=== PATIENT | male | born 1945 | race Caucasian/White ===

== ENCOUNTER 2017-09-25 10:33 | Outpatient (CLI) | payer MEDICARE, MEDICAID | END 2017-09-25 10:34 | disposition home or self-care (01) | LOC: BICULT 10:33 | PROVIDERS: ATTEND Internal Medicine Gastroenterology | DX: K74.60 Unspecified cirrhosis of liver (principal); K83.8 Other specified diseases of biliary tract | CPT/HCPCS: 76705 ==

== ENCOUNTER 2018-02-16 14:00 | Inpatient (IN) | payer MEDICARE, MEDICAID ==
[2018-02-16 14:20] VITALS: BMI 36.4
--- NOTE | 2018-02-26 09:15 | HP ---
HISTORY OF PRESENT ILLNESS: This is a very pleasant 72-year-old male who reports to our office for e valuation of lumbar back pain with left leg numbness. He was seen in our office approximately 4 year s ago for similar symptoms. At that time we referred him to Dr. Tai for injections and pain ma nagement. The patient has tried epidural steroid injections and had a nerve stimulator placed which was removed 3 months ago because it was not helping. The patient states that he cannot stand for any length of time, the most comfortable position for him is lying down. Most of his pain is along the belt line and he has numbness in the left lateral lower leg and lateral foot. The patient will find himself leaning on a shopping cart if he has any grocery shopping to do. Patient denies any falls or weakness. The patient denies any physical therapy, he states that pain meds takes the edge off, but do not make the pain go away. REVIEW OF SYSTEMS: A 10-point review of systems has been completed and is otherwise negative unless stated in the HPI above. PAST MEDICAL HISTORY: Diabetes, hypertension, history of Staph infection, high cholesterol, hepatiti s C, rheumatoid arthritis. PAST SURGICAL HISTORY: Tonsillectomy, knee surgery, ankle surgery in 2016, abdominal aneurysm stent placement in 04/2016. FAMILY HISTORY: Father is at 71 from kidney failure. Mother is at 72 from heart p roblems and diabetes. One of his siblings is , diagnosed with heart disease and a stroke. F amily history of brain aneurysm, heart attacks and kidney problems. SOCIAL HISTORY: The patient is a smoker, smokes approximately half pack a day. He does not drink al cohol or use any other illicit drugs. The patient is retired and . Drinks occasional caffei ne. MEDICATIONS: Atorvastatin, glipizide, nifedipine, aspirin 81 mg, atenolol, Zetia, Benicar and vitami n D3. Hysingla extended release, [place]. PHYSICAL EXAMINATION: CONSTITUTIONAL: Well-developed, well-nourished, alert. NEUROLOGICAL: Mental status, oriented to time, place and person. Normal attention span and concentr ation. Speech is spontaneous and fluent. Comprehension is intact. Content appropriate. Normal fun d of knowledge. CRANIAL NERVES: Pupils are equal, round, reactive to light. Extraocular movements intact. Hearing is intact. Motor muscle strength normal in lower extremities. Muscle tone and bulk normal in lower extremities, 5/5 bilateral strength in IP, KD, KS, PS, EHL. Negative single leg raise. Bilateral ro tation of hips normal. Deep tendon reflexes 2+ patellar bilaterally, 1+ ankle bilaterally. Sensory; light touch, decreased lower left lateral calf and foot. Gait and station; sit to stand, slow. Wid e gait both legs. RESPIRATORY: Normal work of breathing on room air. SKIN: No rashes or lesions on his skin. PSYCHIATRIC: Normal mood and affect. IMAGING: Lumbar MRI vertebrae and alignment L4-L5 foraminal compression; no central compression. Lumbar flexion, extension x-rays L4-L5 anterolisthesis. ASSESSMENT AND PLAN: Spondylolisthesis, lumbar region, L4-L5. Dr. Trotter offered laminectomy and T-lift for L4-5. Risks and benefits have been discussed and the patient is willing to proceed with surgery.
[2018-02-27] MEDS ORDERED: CEFAZOLIN/Water 2 GM/20 ML SYRINGE ONE (06:08)
[2018-02-27] MEDS ORDERED: Thrombin 5000 UNITS/5 ML VIAL ONE (06:17)
[2018-02-27] MEDS ORDERED: Sodium Chloride 0.9% 30 ML ONE (06:17)
[2018-02-27] MEDS ORDERED: Bupivacaine HCl 0.5%/Epinephrine 1:200,000/PF 30 ml Vial ONE (06:17)
[2018-02-27] MEDS ORDERED: Fentanyl 250 MCG/5 ML VIAL ONE (07:04)
[2018-02-27] MEDS ORDERED: Fentanyl 100 MCG/2 ML VIAL ONE ×3 (11:02→14:18)
[2018-02-27] MEDS ORDERED: Rocuronium Bromide 50 MG/5 ML VIAL ONE (11:04)
--- NOTE | 2018-02-27 13:08 | OP ---
DATE OF PROCEDURE: 02/27/2018 SURGEON: Sabrina Trotter M.D. MACHINIST TOOL AND DIE: Suzanne Acevedo PA-C. PREOPERATIVE INDICATION: Treat pain, prevent neurological deterioration. PREOPERATIVE DIAGNOSES: Spondylolisthesis at L4-L5 causing lateral recess stenosis and foraminal dis ease and L4 and L5 radiculopathies. POSTOPERATIVE DIAGNOSES: Spondylolisthesis at L4-L5 causing lateral recess stenosis and foraminal di sease and L4 and L5 radiculopathies. OPERATIVE PROCEDURE: Decompressive laminectomy, medial facetectomy, foraminotomy, and wide foraminot ian at L4-5 followed by transforaminal lumbar interbody arthrodesis, placement of intervertebral biom echanical device at L4-L5, pedicle screw and benny instrumentation at L4-L5 and posterolateral arthrode sis at L4-L5, local morselized autograft, morselized allograft. PREOPERATIVE MEDICATION: Ancef 2 grams IV. DRAIN NUMBER: One. DRAIN TYPE: 10 Portuguese Marco. OPERATIVE DICTATION: The patient was brought to the operating room. General endotracheal anesthesia was induced. The patient was positioned prone on the operating table and his chest and hips were queen pported by the appropriate attachments for the Mustapha frame. A lateral fluoro radiograph was used t o plan an incision that would give us access from L3-L5 segments of the lumbar spine. The skin was s terilely prepped and draped. We opened with a 10 blade knife and controlled bleeding with bipolar an d monopolar cautery. Using monopolar cautery to dissect through subcutaneous tissues to the thoracod orsal fascia. We incised the fascia in the midline and we reflected the paraspinal muscles off the s pinous process and lamina of L3, L4, and L5. Self-retaining retractors were placed. A lateral fluor o radiograph confirmed the levels upon which we were operating. We then carried our dissection over the facet joints at L3-4 and L4-5 to identify the transverse processes of L4 and L5 bilaterally. We irrigated with bacitracin irrigation. We placed self-retaining retractors and we turned our attentio n to decompression. Using an Adson rongeur we removed the spinous process of L4 and the superior portion of L5. Kerrison rongeurs were used to fashion a laminectomy. We widened our laminectomy defect until we were flush with the pedicles at L4 and L5. We had to perform wide foraminotomies over the L4 nerve roots and en sured there were decompressed in their foramen. We performed foraminotomies over the L5 nerve root a s well and made sure the lateral recess was well decompressed. After decompression of the neural debi ments was secured, we turned our attention to arthrodesis. We performed a complete facetectomy at L4-5 on the left side and through the window of the foramen we had just created we accessed the intervertebral space. We incised the disk and removed disk content s using curettes and rongeurs. A series of progressively larger bone rasps were brought in the field . These were used to prepare the endplates for grafting. There was 17 mm of space between the endpl ates. We prepared the endplates for grafting using curets and then irrigated with bacitracin irrigat ion. A 17 mm PEEK intervertebral graft was brought into the field. This was loaded with our deminer alized bone matrix and morselized autograft. That autograft was prepared on the back table from our laminectomy bone, which was cleaned of all soft tissue attachments and morselized into the deminerali zed bone matrix to form our fusion substrate. With the PEEK graft loaded with bone fusion substrate. It was then advanced into the interspace under radiographic guidance to the appropriate depth. We turned our attention to pedicle screw instrumentation. Using bony anatomic landmarks, palpation of t he medial portion of the pedicles, and a lateral fluoro radiograph as a guide, we chose entry points for pedicle screws at L4 and L5 bilaterally. We drilled out the entry points and then used the bone awl to create trajectories through the pedicles and then we tapped our trajectories. We found them c ompletely encased in bone. We placed a 6.5 x 55 mm pedicle screws at L4 and L5 bilaterally. A 360 d egree image set was generated with our isocentric C-arm. This confirmed adequate position of our ped icle screw instrumentation. We then irrigated copiously with bacitracin irrigation. With a high-spe ed drill, we decorticated the transverse processes of L4 and L5 bilaterally and over the decorticated bone we left demineralized bone matrix and morselized autograft as are posterolateral fusion substra te. We brought rods into the screw heads and tightened caps over the rods. Before final tightening, we compressed across the interspace to keep our interbody graft in place. Using a lqlaiq-[id number]-pc rque mechanism, we ensured adequate tightness of the caps. We irrigated the center of the wound once again with bacitracin irrigation. We made sure that the neural foramina were still patent with fora minotomy Kerrisons. We infused local anesthetic in the paraspinal muscles. We treated the wound wit h vancomycin powder. We tunneled a drain inferiorly through a separate stab incision and closed the wound in anatomic layers over the drain. This was a clean case and no contamination.
[2018-02-27] MEDS ORDERED: HYDROcodone/Acetaminophen 7.5/325 mg Tablet PO PRN (13:22)
[2018-02-27] MEDS ORDERED: Morphine 4 MG/ML Carpuject SLOW IVP PRN (13:22)
[2018-02-27] MEDS ORDERED: Acetaminophen/Codeine 30-300mg Tablet PO PRN (13:22)
[2018-02-27] MEDS ORDERED: Acetaminophen 325 MG TAB PO PRN (13:22)
[2018-02-27] MEDS ORDERED: Promethazine HCl 25 MG/ML VIAL IM PRN (13:22)
[2018-02-27] MEDS ORDERED: diphenhydrAMINE 25 MG CAP PO PRN (13:22)
[2018-02-27] MEDS ORDERED: Ondansetron HCl/PF 4 MG/2 ML Vial IVP PRN (13:22)
[2018-02-27] MEDS ORDERED: Zolpidem Tartrate 5 MG TAB PO PRN (13:22)
[2018-02-27] MEDS ORDERED: diphenhydrAMINE 50 MG/ML VIAL IVP PRN (13:22)
[2018-02-27] MEDS ORDERED: Bisacodyl 10 MG SUPP PR PRN (13:22)
[2018-02-27] MEDS ORDERED: Mag-Al 1200 mg/1200 mg/30 ML UDCUP PO PRN (13:22)
[2018-02-27] MEDS ORDERED: Acetaminophen 650 MG Suppository PR PRN (13:22)
[2018-02-27] MEDS ORDERED: Milk Of Magnesia 30 ML UDCUP PO PRN (13:22)
[2018-02-27] MEDS ORDERED: Promethazine 25 MG TAB PO PRN (13:22)
[2018-02-27] MEDS ORDERED: HYDROcodone/Acetaminophen 10/325 mg Tablet PO PRN (13:26)
[2018-02-27] MEDS ORDERED: Nitroglycerin 0.4 MG TAB (25 Tab Bottle) SL PRN (13:26)
[2018-02-27] MEDS ORDERED: Ketorolac Tromethamine 30 MG/ML VIAL ONE (13:51)
[2018-02-27] MEDS ORDERED: ePHEDrine/0.9% NaCl/PF SYRINGE 50 mg/10 ml ONE (13:51)
[2018-02-27] MEDS ORDERED: Dexamethasone 20 MG/5 ML VIAL ONE (13:51)
[2018-02-27] MEDS ORDERED: PROPOFOL 200 MG/20 ML VIAL ONE (13:51)
[2018-02-27] MEDS ORDERED: Glycopyrrolate 0.2 MG/ML 5 ML SYRINGE ONE (13:51)
[2018-02-27] MEDS ORDERED: Lidocaine 1% PF 5 ML VIAL ONE (13:51)
[2018-02-27] MEDS ORDERED: CEFAZOLIN/Water 2 GM/20 ML SYRINGE SLOW IVP SCH (16:00)
[2018-02-27] MEDS: Morphine 4 MG/ML VIAL IV PRN (16:01)
[2018-02-27] MEDS: tiZANidine HCl 4 MG TAB PO PRN (16:39)
[2018-02-27] MEDS: Sodium Chloride 0.9% 1,000 ML IV SCH (18:35)
[2018-02-27] MEDS ORDERED: Non-Formulary Item 1 EACH (Atorvastatin Calcium [Lipitor] 80 MG) PO SCH (21:00)
[2018-02-27] MEDS ORDERED: Sodium Chloride 0.9% 1,000 ML IV SCH (21:15)
[2018-02-27 21:26] LABS: #Lymphocytes 1.1 thou/uL (1.20-3.40); #Monocytes 1.1 thou/uL (0.11-0.59); #Neutrophils 10.7 thou/uL (1.40-6.50); %Basophils 0.2 % (0.0-1.0); %Eosinophils 0.2 % (0.0-10.0); %Lymphocytes 8.3 % (21.0-51.0); %Monocytes 8.2 % (0.0-10.0); %Neutrophils 83.2 % (42.0-75.0); Hemoglobin 8.8 g/dL (14.0-18.0); Mean Corpuscular HGB CONC 32.8 g/dL (32.0-36.0); Mean Corpuscular Hemoglobin 30.9 pg (27.0-31.0); Mean Corpuscular Volume 94.1 fL (78.0-98.0); Mean Platelet Volume 6.3 fL (7.4-10.4); Platelet Count 279 thou/uL (130-400); RBC Distribution Width 12.8 % (11.5-14.5); Red Blood Cell (RBC) Count 2.83 mill/uL (4.70-6.10); White Blood Cell (WBC) Count 12.8 thou/uL (4.8-10.8)
[2018-02-27] MEDS: CEFAZOLIN/Water 2 GM/20 ML SYRINGE SLOW IVP SCH (22:24)
[2018-02-27] MEDS: Atenolol 25 MG TAB PO SCH (22:25)
[2018-02-27] MEDS: Atorvastatin Calcium 40 MG TAB PO SCH (22:25)
[2018-02-28] MEDS: Tamsulosin HCl 0.4 MG CAP PO SCH (05:25)
[2018-02-28] MEDS: CEFAZOLIN/Water 2 GM/20 ML SYRINGE SLOW IVP SCH ×4 (05:27→21:05)
[2018-02-28] MEDS: Sodium Chloride 0.9% 1,000 ML IV SCH ×2 (05:45→16:31)
[2018-02-28] MEDS: HYDROcodone/Acetaminophen 7.5/325 mg Tablet PO PRN ×3 (06:23→16:40)
[2018-02-28] MEDS: Ezetimibe 10 MG TAB PO SCH (08:09)
[2018-02-28] MEDS: Atenolol 25 MG TAB PO SCH ×2 (08:09→21:05)
[2018-02-28] MEDS: Hydrochlorothiazide 25 MG TAB PO SCH (08:09)
[2018-02-28] MEDS: NIFEdipine XL 60 MG TAB PO SCH (08:09)
[2018-02-28] MEDS ORDERED: Non-Formulary Item 1 EACH (Cholecalciferol (Vitamin D3) [Vitamin D3] 1,000 UNIT) PO SCH (09:00)
[2018-02-28] MEDS ORDERED: Non-Formulary Item 1 EACH (Sertraline Hcl [Zoloft] 50 MG) PO SCH (09:00)
[2018-02-28] MEDS ORDERED: Non-Formulary Item 1 EACH (Olmesartan/Hydrochlorothiazide [Benicar Hct] 1 TABLET) PO SCH (09:00)
[2018-02-28] MEDS ORDERED: Non-Formulary Item 1 EACH (Nifedipine [Nifedipine Er] 60 MG) PO SCH (09:00)
[2018-02-28] MEDS ORDERED: Dextrose 50% Abboject 50 ML SYRINGE SLOW IVP PRN (15:41)
[2018-02-28] MEDS ORDERED: Dextrose 5% in Water 1,000 ML IV PRN (15:41)
[2018-02-28] MEDS ORDERED: hydrALAZINE 20 MG/ML VIAL SLOW IVP PRN (15:41)
--- NOTE | 2018-02-28 16:00 | PDOC.PN ---
- Subjective Encounter Start Date: 02/28/18 Encounter Start Time: 15:51 Pt seen for management of medical comorbidities, including diabetes mellitus. Denies chest pain, shortness of breath, fevers or chills. No nausea or vomiting. No abdominal pain. - Objective MAR Reviewed: Yes Vital Signs & Weight: Vital Signs (12 hours) Temp Pulse Resp BP BP BP Pulse Ox 02/28/18 15:36 95/56 L 02/28/18 12:21 98.7 F 103 H 16 102/43 L 96 02/28/18 08:44 99.1 F 108 H 18 100/58 L 96 02/28/18 08:10 96 02/28/18 08:09 105 H 105/64 02/28/18 04:00 99.7 F H 79 16 90/49 L 95 Weight Weight 268 lb 15.988 oz I&O: 02/27/18 02/28/18 03/01/18 06:59 06:59 06:59 Intake Total 2085 Output Total 710 Balance 1375 Result Diagrams: 02/27/18 21:06 Additional Labs: Labs reviewed by me Phys Exam - Physical Examination Constitutional: NAD HEENT: moist MMs Neck: supple Respiratory: clear to auscultation bilateral Cardiovascular: RRR Gastrointestinal: soft Neurological: moves all 4 limbs Psychiatric: normal affect Dx/Plan (1) DM2 (diabetes mellitus, type 2) Status: Chronic Comment: start accuchecks, insulin sliding scale (2) HTN (hypertension) Code(s): I10 - ESSENTIAL (PRIMARY) HYPERTENSION Status: Chronic Comment: controlled. Add PRN IV hydralazine for blood pressure spikes. (3) Dyslipidemia Code(s): E78.5 - HYPERLIPIDEMIA, UNSPECIFIED Status: Chronic Comment: continue statin (4) BPH (benign prostatic hyperplasia) Code(s): N40.0 - BENIGN PROSTATIC HYPERPLASIA WITHOUT LOWER URINRY TRACT SYMP Status: Chronic Comment: stable, continue Flomax (5) Coronary artery disease Code(s): I25.10 - ATHSCL HEART DISEASE OF [place] CORONARY ARTERY W/O ANG PCTRS Status: Chronic Comment: stable - Plan * . pain management and DVT prophylaxis per neurosurgery service Review of Systems - Review of Systems Respiratory: negative: Cough, Shortness of Breath, SOB with Excertion, Pleuritic Pain, Wheezing Cardiovascular: negative: chest pain, palpitations, orthopnea, paroxysmal nocturnal dyspnea, edema, light headedness - Medications/Allergies Allergies/Adverse Reactions: Allergies Allergy/AdvReac Type Severity Reaction Status Date / Time No Known Allergies Allergy Verified 02/16/18 13:56 Medications: Current Medications Acetaminophen (Tylenol) 650 mg PO Q4H PRN PRN Reason: Headache/Fever or Pain Acetaminophen (Tylenol) 650 mg HI Q4H PRN PRN Reason: Headache/Fever or Pain Acetaminophen/Codeine Phosphate (Tylenol #3) 1 tab PO Q3H PRN PRN Reason: Mild Pain (1-3) Acetaminophen/Codeine Phosphate (Tylenol #3) 2 tab PO Q3H PRN PRN Reason: Moderate Pain (4-6) Hydrocodone Bitart/Acetaminophen (Paola 7.5/325) 1 tab PO Q4H PRN PRN Reason: Mild Pain (1-3) Hydrocodone Bitart/Acetaminophen (Paola 7.5/325) 2 tab PO Q4H PRN PRN Reason: Moderate Pain (4-6) Last Admin: 02/28/18 11:18 Dose: 2 tab Hydrocodone Bitart/Acetaminophen (Paola 10/325) 1 tab PO Q6H PRN PRN Reason: Moderate Pain (4-6) Last Admin: 02/27/18 16:40 Dose: 1 tab Al Hydroxide/Mg Hydroxide (Maalox) 30 ml PO Q4H PRN PRN Reason: Indigestion Atenolol (Tenormin) 25 mg PO BID [facility] Last Admin: 02/28/18 08:09 Dose: 25 mg Atorvastatin Calcium (Lipitor) 80 mg PO HS [facility] Last Admin: 02/27/18 22:25 Dose: Not Given Bisacodyl (Dulcolax) 10 mg HI Q12H PRN PRN Reason: Constipation Cefazolin Sodium (Ancef) 2 gm SLOW IVP 0500,1300,2100 [facility] Stop: 03/10/18 13:01 Last Admin: 02/28/18 13:10 Dose: Not Given Cholecalciferol (Vitamin D3) 1,000 units PO DAILY [facility] Last Admin: 02/28/18 08:10 Dose: 1,000 units Dextrose/Water (Dextrose 50%) 25 gm SLOW IVP PRN PRN PRN Reason: Hypoglycemia Diphenhydramine HCl (Benadryl) 25 mg IVP Q6H PRN PRN Reason: Itching Diphenhydramine HCl (Benadryl) 25 mg PO Q6H PRN PRN Reason: Itching Ezetimibe (Zetia) 10 mg PO DAILY [facility] Last Admin: 02/28/18 08:09 Dose: 10 mg Glipizide (Glucotrol Xl) 10 mg PO BID[facility] Last Admin: 02/28/18 08:10 Dose: 10 mg Glucagon (Glucagon) 1 mg IM PRN PRN PRN Reason: Hypoglycemia Hydralazine HCl (Apresoline) 10 mg SLOW IVP Q6H PRN PRN Reason: SBP Greater Than 170 Hydrochlorothiazide (Hydrochlorothiazide) 12.5 mg PO DAILY [facility] Last Admin: 02/28/18 08:09 Dose: 12.5 mg Sodium Chloride (Normal Saline 0.9%) 1,000 mls @ 75 mls/hr IV .[id number] [facility] Last Admin: 02/28/18 05:45 Dose: Not Given Dextrose/Water (D5w) 1,000 mls @ 0 mls/hr IV .Q0M PRN PRN Reason: Hypoglycemia Insulin Human Lispro (Humalog) 0 units SC .MILD SLIDING SCALE PRN PRN Reason: Mild Correctional Scale Magnesium Hydroxide (Milk Of Magnesium) 30 ml PO Q12H PRN PRN Reason: Constipation Morphine Sulfate (Morphine) 2 mg SLOW IVP Q1H PRN PRN Reason: Moderate Breakthrough Pain Morphine Sulfate (Morphine) 4 mg IV Q1H PRN PRN Reason: SEVERE BREAKTHROUGH PAIN Last Admin: 02/27/18 16:01 Dose: 4 mg Nifedipine (Procardia Xl) 60 mg PO DAILY [facility] Last Admin: 02/28/18 08:09 Dose: 60 mg Nitroglycerin (Nitrostat) 0.4 mg SL Q5MIN PRN PRN Reason: Chest Pain Olmesartan (Benicar) 20 mg PO DAILY [facility] Last Admin: 02/28/18 08:09 Dose: 20 mg Ondansetron HCl (Zofran) 4 mg IVP DAILYPRN PRN PRN Reason: Nausea Promethazine HCl (Phenergan) 12.5 mg PO Q4H PRN PRN Reason: Nausea/Vomiting Promethazine HCl (Phenergan) 12.5 mg IM Q4H PRN PRN Reason: Nausea/Vomiting Sertraline HCl (Zoloft) 50 mg PO DAILY [facility] Last Admin: 02/28/18 08:10 Dose: 50 mg Sodium Chloride (Flush - Normal Saline) 10 ml IVF PRN PRN PRN Reason: Saline Flush Tamsulosin HCl (Flomax) 0.4 mg PO 0600 [facility] Last Admin: 02/28/18 05:25 Dose: 0.4 mg Tizanidine HCl (Zanaflex) 4 mg PO Q6H PRN PRN Reason: Muscle Spasm Last Admin: 02/27/18 16:39 Dose: 4 mg Zolpidem Tartrate (Ambien) 5 mg PO HSPRN PRN PRN Reason: Insomnia
--- NOTE | 2018-02-28 16:40 | PRG ---
DATE OF SERVICE: 02/28/2018 NEUROSURGERY PROGRESS NOTE I rounted on Nilson Rodriges early this morning, on postoperative day one, following a decompression fusi on of lumbar spine. He was having soreness from the muscular dissection, but he told me that the rad iating pain in his legs was better. He has some numbness in the anterior thighs as is expected for p lizz positioning on the Mustapha frame with the thighs were feeling better as time went by. This morn ing, the drain had about 10 mL out of it, but there is significant drainage through the incision. Th e vital signs have been stable. He has not had a recorded fever. Blood pressures have been in the 1 00s this morning. There was one blood pressure in the high 80s overnight, but a bolus of normal sali ne seemed a result of that. On examination, there was good motor and sensory function in both lower extremities. Our plan today was to troubleshoot the drain and remove it if it is not draining. If there is any po rtion of the drain that sutured in, then we will have to explore the wound and remove it, but hopeful ly comes out well. We already consulted the inpatient medicine team to assist with medical managemen t of this patient. Physical therapy will come by and begin ambulation. Due to the significant amount of drainage, we wi ll keep him on IV antibiotics in the hospital and send him home on Keflex. A warm air in the lower b ack with a bloody discharge as a setup for infection, I would like to prevent it if possible. We brenton l keep changing the bandages as long as there is drainage coming out. Once he is safe for activities of daily living, Mr. Rodriges will be discharged home. It could happen as early as tomorrow.
[2018-02-28] MEDS: Morphine 4 MG/ML VIAL IV PRN ×2 (17:36→23:21)
[2018-02-28] MEDS: tiZANidine HCl 4 MG TAB PO PRN (18:31)
[2018-02-28] MEDS: Atorvastatin Calcium 40 MG TAB PO SCH (21:04)
[2018-02-28] MEDS ORDERED: Sodium Chloride 0.9% 1,000 ML IV SCH (21:15)
[2018-02-28] MEDS: Acetaminophen/Codeine 30-300mg Tablet PO PRN (22:05)
[2018-03-01] MEDS: Acetaminophen/Codeine 30-300mg Tablet PO PRN ×2 (01:29→05:00)
[2018-03-01] MEDS: Tamsulosin HCl 0.4 MG CAP PO SCH (05:01)
[2018-03-01] MEDS: CEFAZOLIN/Water 2 GM/20 ML SYRINGE SLOW IVP SCH ×3 (05:01→20:10)
[2018-03-01] MEDS: Sodium Chloride 0.9% 1,000 ML IV SCH ×2 (05:42→18:32)
[2018-03-01] MEDS: Morphine 4 MG/ML VIAL IV PRN ×2 (05:52→22:50)
--- NOTE | 2018-03-01 06:55 | PRG ---
DATE OF SERVICE: 03/01/2018 Mr. Rodriges is 2 days out from decompression fusion lumbar spine. He got up to use the bathroom yeste rday, but he did not make it to the hallways. He thought he would keep his brace off due to the drai nage from the low back. We did remove the drain which was not working and there was no retained frag ment. This morning Mr. Rodriges notes that he is feeling a bit short of breath. He has no chest pain or chest pressure, just a little bit more winded than he thinks he ought to be. He does not get way at home unless he does a bit of exercise. There is no new radiating pains down his legs. He has goo d motor and sensory function all the way down to the toes. He had a very low grade fever at 100.1 de grees Fahrenheit at midnight last night. His blood pressures have been in the 90s-110s. Plan for to day is mobilization. He did get him into the hallways yesterday and I would like him to do that to y. He will need a dressing on his wound and his brace on, but we can make that happen today and he c an start working more aggressively with physical therapy. He needs to navigate the hallways before w e can even consider getting him home. He should be safe for his activities of daily living and we wi ll investigate his shortness of breath with some labs and EKG and troponin levels.
[2018-03-01] MEDS: Ezetimibe 10 MG TAB PO SCH (08:29)
[2018-03-01] MEDS: HYDROcodone/Acetaminophen 7.5/325 mg Tablet PO PRN ×3 (08:32→23:49)
[2018-03-01] MEDS: NIFEdipine XL 60 MG TAB PO SCH (08:40)
[2018-03-01] MEDS: Atenolol 25 MG TAB PO SCH ×3 (08:40→20:06)
[2018-03-01] MEDS: Hydrochlorothiazide 25 MG TAB PO SCH (08:40)
[2018-03-01 09:31] LABS: #Eosinphils 0.1 thou/uL (0.0-0.7); #Lymphocytes 1.3 thou/uL (1.20-3.40); #Monocytes 1.6 thou/uL (0.11-0.59); #Neutrophils 7.6 thou/uL (1.40-6.50); %Basophils 0.1 % (0.0-1.0); %Eosinophils 1.4 % (0.0-10.0); %Lymphocytes 12.3 % (21.0-51.0); %Monocytes 14.9 % (0.0-10.0); %Neutrophils 71.3 % (42.0-75.0); Mean Corpuscular HGB CONC 32.9 g/dL (32.0-36.0); Mean Corpuscular Hemoglobin 30.7 pg (27.0-31.0); Mean Corpuscular Volume 93.4 fL (78.0-98.0); Mean Platelet Volume 6.2 fL (7.4-10.4); Platelet Count 255 thou/uL (130-400); RBC Distribution Width 12.7 % (11.5-14.5); Red Blood Cell (RBC) Count 2.59 mill/uL (4.70-6.10); White Blood Cell (WBC) Count 10.6 thou/uL (4.8-10.8)
--- NOTE | 2018-03-01 09:37 | ULT ---
BILATERAL LOWER EXTREMITY DOPPLER: History Lower extremity pain and edema. COMPARISON: None. TECHNIQUE: Real-time, cordero scale, color Doppler, and spectral analysis of the bilateral lower extremity venous s ystems performed. Common femoral, femoral, proximal portion greater saphenous and deep femoral veins as well as popliteal and posterior tibial veins were interrogated. Mild superficial soft tissue edema. No deep venous thrombosis. IMPRESSION: No deep venous thrombosis. POS: [facility]
--- NOTE | 2018-03-01 09:39 | RAD ---
CHEST 2 VIEWS: History Shortness of breath. COMPARISON: Radiograph 03/01/18. FINDINGS: Heart size is enlarged. Mild pulmonary venous congestion. No pneumothorax. No acute osseous abnorm ality. IMPRESSION: Cardiomegaly and mild pulmonary venous congestion. POS: [facility]
--- NOTE | 2018-03-01 09:40 | RAD ---
LUMBAR SPINE 3 VIEW SERIES: INDICATION: Postoperative lumbar spine evaluation status post TLIF. FINDINGS: There is postoperative fusion spanning the L4-5 levels with bilateral pedicle screws and bilateral ve rtical interconnecting rods. Intervertebral disk space device is present. No acute hardware complic ation is identified. There is an aortic/bi-iliac endograft present. IMPRESSION: Postoperative lumbar spine without acute hardware complication. POS: [facility]
[2018-03-01 09:53] LABS: Anion Gap 12 mmol/L (10-20); BUN (Urea Nitrogen) 41 mg/dL (8.4-25.7); Calc. Creatinine Clearance 78 mL/min (70-130); Calcium 8.4 mg/dL (7.8-10.44); Carbon Dioxide 25 mmol/L (23-31); Chloride 105 mmol/L (98-107); Estimated GFR-MDRD 48; Glucose 146 mg/dL (83-110); Potassium 4.5 mmol/L (3.5-5.1); Sodium 137 mmol/L (136-145)
[2018-03-01 09:58] LABS: CKMB 5.1 ng/mL (0-6.6); Troponin I 0.025 ng/mL (< 0.028)
[2018-03-01] MEDS: tiZANidine HCl 4 MG TAB PO PRN ×2 (10:39→17:37)
[2018-03-01] MEDS ORDERED: Furosemide 20 MG/2 ML VIAL SLOW IVP SCH (11:15)
[2018-03-01] MEDS: HumaLOG 300 UNITS/3 ML VIAL SC PRN ×3 (12:24→22:51)
--- NOTE | 2018-03-01 16:43 | PDOC.PN ---
- Subjective Encounter Start Date: 03/01/18 Encounter Start Time: 08:40 Pt seen for followup re: hypertension. Denies chest pain. had shortness of breath yesterday, not today. - Objective MAR Reviewed: Yes Vital Signs & Weight: Vital Signs (12 hours) Temp Pulse Pulse Pulse Resp BP BP 03/01/18 15:56 98.7 F 64 18 03/01/18 12:30 03/01/18 11:40 63 71 114/62 03/01/18 11:33 64 114/62 03/01/18 11:21 99.0 F 64 18 03/01/18 08:40 67 03/01/18 08:34 67 03/01/18 07:46 03/01/18 07:34 99.0 F 59 L 20 BP BP Pulse Ox Pulse Ox Pulse Ox 03/01/18 15:56 107/57 L 94 L 03/01/18 12:30 96 03/01/18 11:40 96 90 L 03/01/18 11:33 03/01/18 11:21 114/62 96 03/01/18 08:40 03/01/18 08:34 95/48 L 03/01/18 07:46 92 L 03/01/18 07:34 90/44 L 92 L Weight Weight 268 lb 15.988 oz I&O: 02/28/18 03/01/18 03/02/18 06:59 06:59 06:59 Intake Total 2085 1030 Output Total 710 1905 Balance 1375 -875 Result Diagrams: 03/01/18 09:18 03/01/18 09:18 Additional Labs: Accuchecks 03/01/18 03/01/18 03/01/18 15:53 11:19 05:12 POC Glucose 221 H 168 H 117 H 02/28/18 02/28/18 20:41 16:38 POC Glucose 214 H 188 H Labs reviewed by me Phys Exam - Physical Examination Constitutional: NAD HEENT: moist MMs Neck: supple Respiratory: clear to auscultation bilateral Cardiovascular: RRR Gastrointestinal: soft Neurological: moves all 4 limbs Psychiatric: normal affect Dx/Plan (1) HTN (hypertension) Code(s): I10 - ESSENTIAL (PRIMARY) HYPERTENSION Status: Chronic Comment: Blood pressure low, continue beta magda but hold olmesartan, nifedipine and hydrochlotrothiazie. Reintroduce them as blood pressure tolerates. (2) DM2 (diabetes mellitus, type 2) Status: Chronic Comment: continue accuchecks, insulin sliding scale (3) Dyslipidemia Code(s): E78.5 - HYPERLIPIDEMIA, UNSPECIFIED Status: Chronic Comment: on statin (4) BPH (benign prostatic hyperplasia) Code(s): N40.0 - BENIGN PROSTATIC HYPERPLASIA WITHOUT LOWER URINRY TRACT SYMP Status: Chronic Comment: stable, continue Flomax (5) Coronary artery disease Code(s): I25.10 - ATHSCL HEART DISEASE OF [place] CORONARY ARTERY W/O ANG PCTRS Status: Chronic Comment: stable (6) Shortness of breath Code(s): R06.02 - SHORTNESS OF BREATH Status: Resolved Comment: pt has pulmonary venous congestion on chest x-ray. Give one-time dose of furosemide. - Plan * . Review of Systems - Review of Systems Cardiovascular: negative: chest pain, palpitations, orthopnea, paroxysmal nocturnal dyspnea, edema, light headedness Gastrointestinal: negative: Nausea, Vomiting, Abdominal Pain, Diarrhea, Constipation, Melena, Hematochezia - Medications/Allergies Allergies/Adverse Reactions: Allergies Allergy/AdvReac Type Severity Reaction Status Date / Time No Known Allergies Allergy Verified 02/16/18 13:56 Medications: Current Medications Acetaminophen (Tylenol) 650 mg PO Q4H PRN PRN Reason: Headache/Fever or Pain Acetaminophen (Tylenol) 650 mg CO Q4H PRN PRN Reason: Headache/Fever or Pain Acetaminophen/Codeine Phosphate (Tylenol #3) 1 tab PO Q3H PRN PRN Reason: Mild Pain (1-3) Acetaminophen/Codeine Phosphate (Tylenol #3) 2 tab PO Q3H PRN PRN Reason: Moderate Pain (4-6) Last Admin: 03/01/18 05:00 Dose: 2 tab Hydrocodone Bitart/Acetaminophen ([place] 7.5/325) 1 tab PO Q4H PRN PRN Reason: Mild Pain (1-3) Hydrocodone Bitart/Acetaminophen ([place] 7.5/325) 2 tab PO Q4H PRN PRN Reason: Moderate Pain (4-6) Last Admin: 03/01/18 15:49 Dose: 2 tab Hydrocodone Bitart/Acetaminophen ([place] 10/325) 1 tab PO Q6H PRN PRN Reason: Moderate Pain (4-6) Last Admin: 02/27/18 16:40 Dose: 1 tab Al Hydroxide/Mg Hydroxide (Maalox) 30 ml PO Q4H PRN PRN Reason: Indigestion Atenolol (Tenormin) 25 mg PO BID [facility] Last Admin: 03/01/18 11:33 Dose: 25 mg Atorvastatin Calcium (Lipitor) 80 mg PO HS [facility] Last Admin: 02/28/18 21:04 Dose: 80 mg Bisacodyl (Dulcolax) 10 mg CO Q12H PRN PRN Reason: Constipation Cefazolin Sodium (Ancef) 2 gm SLOW IVP 0500,1300,2100 [facility] Stop: 03/10/18 13:01 Last Admin: 03/01/18 12:24 Dose: 2 gm Cholecalciferol (Vitamin D3) 1,000 units PO DAILY [facility] Last Admin: 03/01/18 08:29 Dose: 1,000 units Dextrose/Water (Dextrose 50%) 25 gm SLOW IVP PRN PRN PRN Reason: Hypoglycemia Diphenhydramine HCl (Benadryl) 25 mg IVP Q6H PRN PRN Reason: Itching Diphenhydramine HCl (Benadryl) 25 mg PO Q6H PRN PRN Reason: Itching Ezetimibe (Zetia) 10 mg PO DAILY [facility] Last Admin: 03/01/18 08:29 Dose: 10 mg Glipizide (Glucotrol Xl) 10 mg PO BID[facility] Last Admin: 03/01/18 08:29 Dose: 10 mg Glucagon (Glucagon) 1 mg IM PRN PRN PRN Reason: Hypoglycemia Hydralazine HCl (Apresoline) 10 mg SLOW IVP Q6H PRN PRN Reason: SBP Greater Than 170 Hydrochlorothiazide (Hydrochlorothiazide) 12.5 mg PO DAILY [facility] Last Admin: 03/01/18 08:40 Dose: Not Given Sodium Chloride (Normal Saline 0.9%) 1,000 mls @ 75 mls/hr IV .[id number] [facility] Last Admin: 03/01/18 05:42 Dose: Not Given Dextrose/Water (D5w) 1,000 mls @ 0 mls/hr IV .Q0M PRN PRN Reason: Hypoglycemia Insulin Human Lispro (Humalog) 0 units SC .MILD SLIDING SCALE PRN PRN Reason: Mild Correctional Scale Last Admin: 03/01/18 12:24 Dose: 2 units Magnesium Hydroxide (Milk Of Magnesium) 30 ml PO Q12H PRN PRN Reason: Constipation Morphine Sulfate (Morphine) 2 mg SLOW IVP Q1H PRN PRN Reason: Moderate Breakthrough Pain Morphine Sulfate (Morphine) 4 mg IV Q1H PRN PRN Reason: SEVERE BREAKTHROUGH PAIN Last Admin: 03/01/18 05:52 Dose: 4 mg Nifedipine (Procardia Xl) 60 mg PO DAILY [facility] Last Admin: 03/01/18 08:40 Dose: Not Given Nitroglycerin (Nitrostat) 0.4 mg SL Q5MIN PRN PRN Reason: Chest Pain Olmesartan (Benicar) 20 mg PO DAILY [facility] Last Admin: 03/01/18 08:40 Dose: Not Given Ondansetron HCl (Zofran) 4 mg IVP DAILYPRN PRN PRN Reason: Nausea Promethazine HCl (Phenergan) 12.5 mg PO Q4H PRN PRN Reason: Nausea/Vomiting Promethazine HCl (Phenergan) 12.5 mg IM Q4H PRN PRN Reason: Nausea/Vomiting Sertraline HCl (Zoloft) 50 mg PO DAILY [facility] Last Admin: 03/01/18 08:30 Dose: 50 mg Sodium Chloride (Flush - Normal Saline) 10 ml IVF PRN PRN PRN Reason: Saline Flush Tamsulosin HCl (Flomax) 0.4 mg PO 0600 [facility] Last Admin: 03/01/18 05:01 Dose: 0.4 mg Tizanidine HCl (Zanaflex) 4 mg PO Q6H PRN PRN Reason: Muscle Spasm Last Admin: 03/01/18 10:39 Dose: 4 mg Zolpidem Tartrate (Ambien) 5 mg PO HSPRN PRN PRN Reason: Insomnia
[2018-03-01] MEDS: Atorvastatin Calcium 40 MG TAB PO SCH (20:09)
[2018-03-02] MEDS: CEFAZOLIN/Water 2 GM/20 ML SYRINGE SLOW IVP SCH (05:07)
[2018-03-02] MEDS: Tamsulosin HCl 0.4 MG CAP PO SCH (05:07)
[2018-03-02] MEDS: HYDROcodone/Acetaminophen 7.5/325 mg Tablet PO PRN ×2 (05:10→09:50)
--- NOTE | 2018-03-02 07:06 | PRG ---
DATE OF SERVICE: 03/02/2018 I saw Nilson Rodriges in rounds this morning. He is resting comfortably in his bed and actually getting up. He has already been walking around the nurses' floor twice this morning. The dressing was changed once yesterday and once this morning which is a decrease in the amount of drainage. He wants to go home. The numbness in his left leg, he feels it is improved. His shortness of breath has gone away since his blood transfusion. Recorded vital signs look stable. His neurological examination is reassuring. I do not find any new motor deficits at all. Yesterday's troponins were negative. EKG looked reasonable, but his hemoglobin was low and a transfusion improved his shortness of breath. Antelmo is ready for discharge. We will make arrangements for that to happen. He seems safe for all his activities of daily living. He has his brace on. He knows how to put it on and take it off and followup arrangements are going to be made. We went over home-going activity restrictions and wound care. CATHY
[2018-03-02 08:04] VITALS: BP 111/44; TEMP 98.3
[2018-03-02] MEDS: Ezetimibe 10 MG TAB PO SCH (08:47)
[2018-03-02] MEDS: Atenolol 25 MG TAB PO SCH (08:47)
[2018-03-02] MEDS: Hydrochlorothiazide 25 MG TAB PO SCH (08:54)
[2018-03-02] MEDS: NIFEdipine XL 60 MG TAB PO SCH (08:54)
[2018-03-02] MEDS: Sodium Chloride 0.9% 1,000 ML IV SCH (08:55)
--- NOTE | 2018-03-04 17:34 | EKG ---
Test Reason : Blood Pressure : / mmHG Vent. Rate : 065 BPM Atrial Rate : 065 BPM P-R Int : 214 ms QRS Dur : 148 ms QT Int : 480 ms P-R-T Axes : 013 -65 -30 degrees QTc Int : 499 ms Sinus rhythm with 1st degree A-V block Right bundle branch block Left anterior fascicular block Bifascicular block Abnormal ECG When compared with ECG of 16-FEB-2018 14:43, Nonspecific T wave abnormality has replaced inverted T waves in Inferior leads Confirmed by CHANTEL FONSECA (2) on 03/04/2018 5:34:33 PM Referred By: THU Confirmed By:CHANTEL FONSECA
--- NOTE | 2018-03-05 12:21 | PQF ---
YUMIKOBRAYDEN L GERARD MD [id number] SURG A- [id number] Billing and Coding has requested documentation related to a blood transfusion. Mr. Rodriges had moderate blood loss anemia following lumbar fusion and SOB. Given his CAD history, he was transfused 2 units without complication and did well. MTDD
== END 2018-03-02 11:39 | disposition home or self-care (01) | DRG 460 ==
LOC: UNDOADMIN 02-27 05:29 → SURG A 02-27 05:29
PROVIDERS: ADMIT Neurological Surgery; ATTEND Neurological Surgery
PROC: 0SG00AJ Fusion of Lumbar Vertebral Joint with Interbody Fusion Device, Posterior Approach, Anterior Column, Open Approach (ICD-10-PCS; principal; 2018-02-27)
PROC: 3E0U0GB Introduction of Recombinant Bone Morphogenetic Protein into Joints, Open Approach (ICD-10-PCS; 2018-02-27)
PROC: 30233N1 Transfusion of Nonautologous Red Blood Cells into Peripheral Vein, Percutaneous Approach (ICD-10-PCS; 2018-03-01)
DX: M43.16 Spondylolisthesis, lumbar region (principal); D62 Acute posthemorrhagic anemia; E11.9 Type 2 diabetes mellitus without complications; I10 Essential (primary) hypertension; M06.9 Rheumatoid arthritis, unspecified; E78.5 Hyperlipidemia, unspecified; N40.0 Benign prostatic hyperplasia without lower urinary tract symptoms; I25.10 Atherosclerotic heart disease of native coronary artery without angina pectoris; F17.210 Nicotine dependence, cigarettes, uncomplicated
CPT/HCPCS: 36415; 36416; 36430; 71046; 72100; 76001; 80048; 82553; 84484; 85025; 86850; 86900; 86901; 93005; 93010; 93970; A4216; C1713; C1768; G8978-GP-CL; G8979-GP-CJ; J0670; J1100; J1885; J1940; J2001; J2270; J2704; J3010; J3370; J3490; P9016

== ENCOUNTER 2018-04-27 12:40 | Outpatient (CLI) | payer MEDICARE, MEDICAID ==
--- NOTE | 2018-04-27 14:04 | RAD ---
TWO VIEWS LUMBAR SPINE: HISTORY: Followup surgery. FINDINGS: AP and lateral views of the lumbar spine are obtained on 04/27/2018. Comparison is made to previous exam from 03/01/2018. Images demonstrate an aortic stent graft over the abdominal aorta and the iliac arteries. Pedicle sc rew seen fusing the L4 and L5 vertebrae. There is a compression fracture seen in the superior end plate of T12 unchanged since the previous ex am from 03/01/2018. No evidence of acute lumbar spine pathology is seen. IMPRESSION: No significant interval change is seen. Postsurgical changes seen at the L4-5 disk space. POS: [facility]
== END 2018-04-27 12:41 | disposition home or self-care (01) ==
LOC: TBSIIMAG 12:40
PROVIDERS: ATTEND Neurological Surgery
DX: M43.16 Spondylolisthesis, lumbar region (principal); Z98.890 Other specified postprocedural states
CPT/HCPCS: 72100

== ENCOUNTER → 2018-05-31 | Outpatient (CLI) | payer MEDICARE, MEDICAID | LOC: LAB 15:44 → MRI 15:44 | PROVIDERS: ATTEND Physician Assistant Medical | DX: K74.60 Unspecified cirrhosis of liver (principal); B18.2 Chronic viral hepatitis C; Z86.010 Personal history of colon polyps | CPT/HCPCS: 82565 ==

== ENCOUNTER 2018-08-14 13:09 | Outpatient (CLI) | payer MEDICARE, MEDICAID ==
[~2018-08-14 13:09] MED LIST: Gadobenate Dimeglumine 529 MG/1 ML (20ML VIAL) ONE
--- NOTE | 2018-08-14 15:54 | MRI ---
MRI ABDOMEN WITHOUT AND WITH CONTRAST: Comparison: 10-31-17 History: Hepatitis C. Cirrhosis. Technique: Multiplanar, multisequence MRI images were obtained of the abdomen without and with IV con trast. FINDINGS: The liver is mildly enlarged but has a smooth contour without significant nodularity. No focal liver lesions are seen. No ascites is seen. The spleen is normal in size. No varices are identified. Small well circumscribed foci of high T2 signal that do not enhance, are seen in both kidneys measuri ng up to 1.2 cm in size. These represent simple cysts. No focal liver lesions are seen. The gallbladder, adrenal glands, spleen, and pancreas are unremarkab le. No abdominal adenopathy is seen. The patient is status post stent graft repair of the abdominal aorta . No marrow signal abnormality is present. IMPRESSION: 1. No suspicious liver lesion identified. 2. Bilateral renal cysts. POS: [facility]
== END 2018-08-14 13:10 | disposition home or self-care (01) ==
LOC: TBSIIMAG 13:09
PROVIDERS: ATTEND Physician Assistant Medical
DX: K74.60 Unspecified cirrhosis of liver (principal); B18.2 Chronic viral hepatitis C; Z86.010 Personal history of colon polyps; N28.1 Cyst of kidney, acquired
CPT/HCPCS: 74183; 82565; A9577

== ENCOUNTER 2019-05-23 11:57 | Outpatient (CLI) | payer MEDICARE, MEDICAID ==
--- NOTE | 2019-05-23 13:45 | ULT ---
HEPATIC ULTRASOUND WITH DOPPLER: HISTORY: Cirrhosis of the liver. FINDINGS: The liver demonstrates increased echogenicity, consistent with diffuse hepatocellular disease. No foc al mass or intrahepatic ductal dilatation is seen. The spleen measures 12.2 cm in length. Echogenic f oci in the spleen are likely due to granulomatous disease. No gallstones, gallbladder wall thickening or pericholecystic fluid is seen. The common duct measures 9 mm in diameter. The pancreas is not wel l visualized due to overlying bowel gas. The hepatic portal and the visualized portions of the spleni c vessels demonstrate appropriate flow and spectral wave-forms. No free fluid is seen. IMPRESSION: No evidence of liver mass. POS: [facility]
== END 2019-05-23 11:58 | disposition home or self-care (01) ==
LOC: BICULT 11:57
PROVIDERS: ATTEND Internal Medicine Gastroenterology
DX: K74.60 Unspecified cirrhosis of liver (principal)
CPT/HCPCS: 76705